=== PATIENT | female | born 1995 | race Caucasian/White ===

== ENCOUNTER → 2017-01-08 | Day surgery (SDC) | payer OTHER ==
[~2017-01-08] VITALS: Ht 157.5 cm; Wt 63.5 kg
[~2017-01-08] MED LIST: Birth Control Pill PO; DESFLURANE 240 ML INHALANT As Ordered ONE; KETOROLAC 60 MG/2 ML VIAL (J1885) As Ordered ONE; LIDOCAINE 1% MDV 20ML VIAL ONE; LIDOCAINE 2% INJ 100 MG/5 ML SDV (FOR ANES.) As Ordered ONE; LR 1,000 ML IV SCH; MEPIVACAINE HCL 1.5% 30 ML VIAL (J0670) ONE; METOCLOPRAMIDE INJ 10MG/2ML VIAL (J2765) As Ordered ONE; METOCLOPRAMIDE INJ 10MG/2ML VIAL (J2765) IV PRN; MIDAZOLAM INJ 2 MG/2 ML VIAL (J2250) As Ordered ONE; MORPHINE 4 MG/ML 1ML SYRINGE IV PRN; NORCO, ANEXSIA 5/325MG TABLET (HYDROcodone/ACETAMINOPHEN) PO PRN; ONDANSETRON 4MG/2ML VIAL (J2405) As Ordered ONE; ONDANSETRON 4MG/2ML VIAL (J2405) IV PRN; PERCOCET 5MG/325MG TAB As Ordered ONE; PROPOFOL 500 MG/50 ML VIAL As Ordered ONE; ROPIvacaine 0.5% 30 ML INJECTION (J2795) As Ordered ONE; ROPIvacaine 0.5% 30 ML INJECTION (J2795) ONE; ROPIvacaine 0.5% 30 ML INJECTION (J2795) XX ONE; ceFAZolin 1GM INJ (J0690) As Ordered ONE; ceFAZolin 1GM INJ (J0690) XX ONE; dexameTHASONE 10 MG/1 ML VIAL PRES.FREE (J1100) ONE; fentaNYL 100 MCG/2 ML INJECTION (J3010) As Ordered ONE; fentaNYL 100 MCG/2 ML INJECTION (J3010) IV PRN
[2017-01-08] MEDS: MIDAZOLAM INJ 2 MG/2 ML VIAL (J2250) IV PRN ×2 (08:40→08:42)
[2017-01-08 09:23] LABS: CONTROL LINE UCG INT CTR LINE PRESENT
[2017-01-08] MEDS: PERCOCET 5MG/325MG TAB PO PRN ×3 (13:05→13:37)
[2017-01-08 15:20] VITALS: BP 126/78
--- NOTE | 2017-01-09 07:29 | RO ---
DATE OF PROCEDURE: 01/08/2017 PREOPERATIVE DIAGNOSIS: Left knee anterior cruciate ligament (ACL) and lateral meniscus tear. POSTOPERATIVE DIAGNOSIS: Left knee ACL and lateral meniscus tear. PROCEDURE: 1. Left knee hamstring ACL reconstruction. 2. Left knee lateral meniscal repair. SURGEON: Dr. Jose Francisco Cortés ALLIGATOR TRAPPER: Regine Townsend ANESTHESIA: General laryngeal mask anesthetic with left femoral nerve block. COMPLICATIONS: None. FINDINGS: She had a complete rupture in the anterior cruciate ligament as well as a tear of the posterior aspect of the lateral meniscus. It was not a root tear, it was just lateral to the root, it was more of a radial tear and was repaired with a side to side Arthrex meniscal cinch sutures technique. DESCRIPTION OF PROCEDURE: Antibiotics were given intravenously preoperatively and a successful general laryngeal mask anesthetic and left femoral nerve block had been established. A tourniquet was placed on the left upper thigh and not inflated. The left lower extremity was prepped and draped in the usual sterile fashion. After an appropriate time out, the tourniquet was inflated. Insufflation portal was established superomedially, the scope was introduced anterolaterally and working port was anteromedially. We introduced the arthroscope and explored the joint and found an anterior cruciate ligament tear. The medial meniscus was intact. The posterior cruciate ligament (PCL) was intact. The articular cartilage surfaces were intact. The lateral meniscus had a radial tear right just next to the root of the lateral mensicus, but the root was still attached. Thus, I elected to repair this with a side to side suture to keep the flap back in its anatomic position. I placed the scope in the anteromedial portal for visualization and then used the anterolateral portal to introduce the meniscal repair device and placed the first suture punch into the small flap. It was more near the center of the knee. Then I withdrew and advanced the second needle across the tear to the main body and then deployed that suture. Then pulled the device out and loaded the knot pusher and suture cutter device and pulled the sutures in and it nicely tightened the meniscus back into an anatomical position. Photographs were taken to document. At this point then I debrided the remnant of the anterior cruciate ligament and then removed the arthroscopy instruments and harvested the gracilis and semitendinosus hamstrings through a small anteromedial longitudinal incision reflecting the sartorial fascia anteromedially. I first isolated the gracilis, whip stitched with FiberWire. Then I isolated the semitendinosus and released its adhesions to the medial gastroc and whip stitched with FiberWire and then removed it. Then on the back table, I removed the muscle tissues from the proximal ends and whip stitched with FiberWire and then the folded over four strand construct fit through a 7.5 mm diameter sleeve and thus I used a 7.5 flip cutter. I then placed the scope int the anteromedial portal and placed the over the top guide and measured from proximal to distal at 22 and thus at 10 mm I put the point of the guide right in the middle of the femoral foot print. Laterally I introduced the drill guide against the skin and made a small incision and advanced down to the bone. Then, used the 7.5 mm flip cutter to advance into our previously appointed spot. Then I advanced the drill sleeve 7 mm into the lateral femoral cortex and then retrograde reamed the femoral tunnel. Fiber stick was then placed down through the drill sleeve and pulled out through the anterolateral tunnel. Then at this point I placed the scope back in the anterolateral portal and then placed the tibial guide equivalent to the alignment with the mid portion of the anterior horn attachment of the lateral meniscus on the medial tibial spine and then advanced the drill set at 60 degrees. Then I used the 8 mm reamer to ream the tibial tunnel. I grasped the passing suture down through this tunnel. Then on the back table we loaded the tight rope device and the femoral tunnel measured about 28 mm and the juan j was placed appropriately. Then the passing sutures were passed through the loop and then advanced off to the lateral cortex. Then the tightrope button flipped nicely in very good proximal fixation. Then I advanced the graft up into the femoral tunnel with the white sutures and then cycled the knee in flexion and extension and the graft was in nice position. Photographs were taken to document. It was relatively isometric. Then after cycling the knee I held it at about 20 degrees from full extension with a firm posterior flight engineer instructor external rotation moment and placing equal pressure on all four limbs of the graft. My research program assistant Regine Townsend advanced the 8x28 BioScrew up the tibial tunnel with excellent purchase. This eliminated her Becka on the table. She had full flexion and extension. The graft was palpated and found to be nice and taut. We copiously irrigated out the knee joint. Multiple photographs were taken. No other pathology identified. Thus at this point we closed the sartorius fascia back anatomically with interrupted #2-0 PDS sutures after cutting the sutures short that were still remaining out of the tibial tunnel. Then closed the deep subdermal tissues with interrupted #2-0 PDS sutures subcuticular, #4-0 Monocryl was used on the skin and covered by Mastisol and Steri-Strips. The lateral wound was closed with nylon. The rest of the wounds were covered with Adaptic and dry sterile bulky dressing. Then the tourniquet was released. Then she was awakened from general laryngeal mask anesthetic after having tolerated the procedure well and transferred to the recovery room in stable condition. Ms. Regine Townsend was critical for the success of this difficult procedure by helping to hold the arthroscope, helping to manage the sutures, and manipulate the knee as needed several times throughout the operation in order for me to perform the operation smoothly and efficiently.
== END | disposition home or self-care (01) ==
LOC: M SDC 08:22
PROVIDERS: ATTEND Orthopaedic Surgery
DX: S83.512A Sprain of anterior cruciate ligament of left knee, initial encounter (principal); M23.222 Derangement of posterior horn of medial meniscus due to old tear or injury, left knee; X50.9XXA Other and unspecified overexertion or strenuous movements or postures, initial encounter; Y93.89 Activity, other specified; Y92.89 Other specified places as the place of occurrence of the external cause; Y99.8 Other external cause status
CPT/HCPCS: 29882; 29888; 64425; 84703; C1713; J0670; J0690; J1100; J1885; J2250; J2405; J2765; J2795; J3010

== ENCOUNTER → 2019-06-17 | Outpatient (REF) | payer OTHER ==
[~2019-06-17] MED LIST changes: -DESFLURANE 240 ML INHALANT As Ordered ONE; -KETOROLAC 60 MG/2 ML VIAL (J1885) As Ordered ONE; -LIDOCAINE 1% MDV 20ML VIAL ONE; -LIDOCAINE 2% INJ 100 MG/5 ML SDV (FOR ANES.) As Ordered ONE; -LR 1,000 ML IV SCH; -MEPIVACAINE HCL 1.5% 30 ML VIAL (J0670) ONE; -METOCLOPRAMIDE INJ 10MG/2ML VIAL (J2765) As Ordered ONE; -METOCLOPRAMIDE INJ 10MG/2ML VIAL (J2765) IV PRN; -MIDAZOLAM INJ 2 MG/2 ML VIAL (J2250) As Ordered ONE; -MORPHINE 4 MG/ML 1ML SYRINGE IV PRN; -NORCO, ANEXSIA 5/325MG TABLET (HYDROcodone/ACETAMINOPHEN) PO PRN; -ONDANSETRON 4MG/2ML VIAL (J2405) As Ordered ONE; -ONDANSETRON 4MG/2ML VIAL (J2405) IV PRN; -PERCOCET 5MG/325MG TAB As Ordered ONE; -PROPOFOL 500 MG/50 ML VIAL As Ordered ONE; -ROPIvacaine 0.5% 30 ML INJECTION (J2795) As Ordered ONE; -ROPIvacaine 0.5% 30 ML INJECTION (J2795) ONE; -ROPIvacaine 0.5% 30 ML INJECTION (J2795) XX ONE; -ceFAZolin 1GM INJ (J0690) As Ordered ONE; -ceFAZolin 1GM INJ (J0690) XX ONE; -dexameTHASONE 10 MG/1 ML VIAL PRES.FREE (J1100) ONE; -fentaNYL 100 MCG/2 ML INJECTION (J3010) As Ordered ONE; -fentaNYL 100 MCG/2 ML INJECTION (J3010) IV PRN
== END ==
LOC: M SFHCWAGY 15:05
PROVIDERS: ATTEND Nurse Practitioner Women's Health
DX: Z12.4 Encounter for screening for malignant neoplasm of cervix (principal)

== ENCOUNTER → 2020-03-29 | Outpatient (CLI) | payer OTHER ==
--- NOTE | 2020-03-30 03:24 | REP ---
Clinical: Right-sided pelvic pain . Technique: Transabdominal pelvic ultrasound with color Doppler evaluation of the ovaries. Findings: Bladder is unremarkable and measures 10.3 x 6.0 x 8.9 cm . Normal anteverted uterus measures 7.2 x 2.0 x 3.2 cm . The endometrial complex measures 4.5 mm thickness. No discrete uterine or endometrial abnormalities are appreciated. Bilateral ovaries are normal in appearance. Right ovary measures 2.3 x 1.0 x 2.7 cm ; Left ovary measures 2.6 x 1.5 x 1.9 cm ; R I = 0.49 . No pelvic fluid or adnexal mass lesion . Impression: 1. normal pelvic ultrasound
== END ==
LOC: M WHC 15:29
PROVIDERS: ATTEND Nurse Practitioner Women's Health
DX: R10.2 Pelvic and perineal pain (principal)

== ENCOUNTER 2025-07-31 16:05 | Emergency (ER) | payer OTHER ==
[~2025-07-31] VITALS: Ht 157.5 cm; Wt 63.7 kg
[2025-07-31 17:08] LABS: KETONE, URINE AUTO RFX NEGATIVE (NEGATIVE); LEUKOCYTE ESTERASE UR AUTO RFX NEGATIVE (NEGATIVE); NITRITE, URINE AUTO RFX NEGATIVE (NEGATIVE); RBC, URINE AUTO RFX 0 /HPF (0-3); SQUAM EPITHELIAL CELL UR AURFX 3 /HPF (0-6); WBC, URINE AUTO RFX 1 /HPF (0-3)
[2025-07-31 18:34] LABS: Trichomonas vaginalis (AMP) NOT DETECTED (NEGATIVE)
[2025-07-31 18:56] LABS: GC DNA AMPLIFICATION NEGATIVE (NEGATIVE)
[2025-07-31 19:20] LABS: BASO # 0.0 10^3/uL (0.0-0.2); BASO % 0.5 % (0.0-1.0); EOS # 0.1 10^3/uL (0.0-0.5); EOS % 1.3 % (0.0-3.0); LYMPH # 3.0 10^3/uL (1.5-5.0); LYMPH % 37.0 % (24.0-44.0); MONO # 0.3 10^3/uL (0.0-0.8); MONO % 4.2 % (2.0-8.0); NEUTROPHILS # 4.7 10^3/uL (1.5-8.5); NEUTROPHILS % 56.9 % (36.0-66.0); PLATELET COUNT, AUTOMATED 316 10^3/uL (150-450)
[2025-07-31 19:54] LABS: ALT/SGPT 16.0 U/L (7.0-40); AST/SGOT 28.0 U/L (<34)
[2025-07-31] MEDS ORDERED: ISOVUE-370 76% 100 ML VIAL As Ordered ONE (20:05)
[2025-07-31 21:53] VITALS: BP 98/64; TEMP 98.2; O2SAT 98
== END 2025-07-31 21:54 | disposition home or self-care (01) ==
LOC: M ED 16:05
DX: K59.00 Constipation, unspecified (principal); K58.9 Irritable bowel syndrome, unspecified
CPT/HCPCS: 74177; 80047; 80076; 81001; 83690; 85025; 87661; 87810; 87850; 99284; Q9967